=== PATIENT | male | born 1995 | race Caucasian/White ===

== ENCOUNTER 2017-07-21 09:53 | Emergency (ER) | payer SELFPAY ==
[~2017-07-21] VITALS: Ht 198.1 cm; Wt 82.0 kg
[2017-07-21 09:55] VITALS: BP 131/60; PULSE 85; RESP 14; TEMP 99; O2SAT 99
--- NOTE | 2017-07-21 11:28 | PD ---
HPI Chief Complaint: Cold / Flu Symptoms Time Seen by Provider: 11:20 Travel History International Travel<30 days: No Contact w/Intl Traveler<30days: No Traveled to known affect area: No History of Present Illness HPI 21-year-old male presents to the emergency room for evaluation of nonproductive cough, congestion, sore throat, and ear pressure for the past 2 days. He has not taken anything for symptoms. Denies fever, chills, nausea, and vomiting. Patient states usually gets better by now and is concerned this was turning into a bronchitis. He smokes but denies history of asthma. No chronic medical conditions or daily medications. Allergies-Medications (Allergen,Severity, Reaction): Coded Allergies: No Known Allergies (Verified Allergy, Unknown, 07/21/17) Reported Meds & Prescriptions Reported Meds & Active Scripts Active No Active Prescriptions or Reported Medications Review of Systems Except as stated in HPI: all other systems reviewed are Neg Physical Exam Narrative GENERAL: Well-nourished, well-developed male in no acute distress. Afebrile. Ambulatory. SKIN: Focused skin assessment warm/dry. HEAD: Normocephalic. EYES: No scleral icterus. No injection or drainage. EARS: Bilateral pinnae and external canals appear within normal limits. Bilateral ears occluded with cerumen. ENT: Mucosa pink and moist. Mild erythema of pharynx without edema or exudates. No uvular edema. No uvular, palatal, or tonsillar deviation. Airway patent. Nasal turbinates appear normal without nasal blood, purulent drainage or septal hematoma. NECK: Supple, trachea midline. No JVD or lymphadenopathy. CARDIOVASCULAR: Regular rate and rhythm without murmurs, gallops, or rubs. RESPIRATORY: Breath sounds equal bilaterally. No accessory muscle use. No crackles, rales, wheezes, or rhonchi. Data Data Last Documented VS Vital Signs Date Time Temp Pulse Resp B/P (MAP) Pulse Ox O2 Delivery O2 Flow Rate FiO2 07/21/17 09:55 99.0 85 14 131/60 (83) 99 MDM Medical Screen Exam Complete: Yes Emergency Medical Condition: No Differential Diagnosis URI Narrative Course 21-year-old male presents to the emergency room for evaluation of nonproductive cough, sore throat, congestion for the past 2 days. Patient is afebrile and well-appearing in the emergency room. Vital signs stable. Resting comfortably. Physical exam is reassuring. Erythematous pharynx. Lungs sounds clear and equal bilaterally. This is URI. Patient was informed that he may develop viral bronchitis if symptoms persist for greater than 10 days at which time he should follow-up with his PCP. No indication for antibiotics, steroids , or inhaler at this time. No urgent or emergent medical conditions at this time. A medical screening exam was performed: At the time of evaluation the presenting medical condition was determined not to be of an emergent nature. The patient was given the option of receiving additional care, but declined. Patient was given options for additional community resources from which to obtain care. The Patient Has Been advised to seek medical attention for their presenting complaint. The patient has been advised to return to the ER at any time if an emergent condition develops. Primary Impression: Encounter for medical screening examination Scripts No Active Prescriptions or Reported Meds Disposition: 01 DISCHARGE HOME Condition: Stable Lucy Lange Jul 21, 2017 11:28
== END 2017-07-21 11:36 | disposition left against medical advice (07) ==
LOC: NEPK 09:53
DX: R05 Cough (principal)
CPT/HCPCS: 99281

== ENCOUNTER 2017-08-02 18:17 | Emergency (ER) | payer SELFPAY ==
[~2017-08-02] VITALS: Ht 198.1 cm; Wt 81.8 kg
[2017-08-02 18:19] VITALS: BP 147/70; PULSE 114; RESP 14; TEMP 99.3; O2SAT 97
[2017-08-02 19:24] VITALS: BP 122/57; PULSE 93; RESP 16; TEMP 100.1; O2SAT 98
--- NOTE | 2017-08-02 20:59 | PD ---
HPI Chief Complaint: Psychiatric Symptoms Time Seen by Provider: 20:49 Travel History International Travel<30 days: No Contact w/Intl Traveler<30days: No Traveled to known affect area: No History of Present Illness HPI 21-year-old white male presents to emergency department at the recommendation of his psychologist for evaluation of hallucinations. The patient states that he's been seen by a counselor now for the past several weeks. He's been evaluated for depression. He states that he has had depression for as long as he can recall. He also is hearing voices. Sometimes they are whispers and he cannot hear with her saying other times her voices of persecution as well as telling him to hurt himself. He performs self relating cutting today. He had caused an abrasion to his left wrist. He denies any suicidal or homicidal ideation. He denies any toxic ingestions. He states that he had quit alcohol one month ago. He denies any drugs. He does smoke tobacco. Patient is unaware that he has a low-grade temperature. He states that he has had a cold last week that did improve. He has had some mild sore throat and slight cough still. Patient denies any known fever today. No earache, shortness of breath, nausea, vomiting, diarrhea, abdominal pain or urinary symptoms. PFSH Past Medical History Narrative Medical Depression Depression: Yes Diminished Hearing: No Respiratory: Yes (BRONCHITIS) Tetanus Vaccination: Unknown Influenza Vaccination: No Past Surgical History Surgical History: No Previous Surgery Social History Alcohol Use: No (1 MONTH AGO) Tobacco Use: Yes (1 /2 PPD) Substance Use: No (PAST POLYSUBSTANCE) Allergies-Medications (Allergen,Severity, Reaction): Coded Allergies: No Known Allergies (Verified Allergy, Unknown, 08/02/17) Reported Meds & Prescriptions Reported Meds & Active Scripts Active No Active Prescriptions or Reported Medications Review of Systems Except as stated in HPI: all other systems reviewed are Neg Psychiatric: Positive: Depression, Disorder of Thought, Mood Disorder, No: Anxiety, Suicidal Ideations, Substance Abuse, Homicidal Ideation Physical Exam Narrative GENERAL: Well-nourished, well-developed patient. SKIN: Warm and dry. Patient has a superficial cut to the left volar wrist HEAD: Normocephalic and atraumatic. EYES: No scleral icterus. No injection or drainage. ENT: No nasal drainage noted. Mucous membranes pink. Airway patent. NECK: Supple, trachea midline. Moves head freely without obvious discomfort. CARDIOVASCULAR: Regular rate and rhythm without murmurs, gallops, or rubs. RESPIRATORY: Breath sounds equal bilaterally. No accessory muscle use. GASTROINTESTINAL: Abdomen soft, non-tender, nondistended. EXTREMITIES: No cyanosis or edema. BACK: Nontender without obvious deformity. No CVA tenderness. NEURO: Patient is alert and oriented. no sensorimotor deficits. Nonfocal. Normal speech. PSYCH: No delusions. No auditory or visual hallucinations. Data Data Last Documented VS Vital Signs Date Time Temp Pulse Resp B/P (MAP) Pulse Ox O2 Delivery O2 Flow Rate FiO2 08/02/17 22:50 98.1 67 18 118/64 (82) 99 Room Air Orders Orders Complete Blood Count With Diff (08/02/17 18:32) Comprehensive Metabolic Panel (08/02/17 18:32) Psych Screen (08/02/17 18:32) Drug Screen, Random Urine (08/02/17 18:32) Alcohol (Ethanol) (08/02/17 18:32) Group A Rapid Strep Screen (08/02/17 20:49) Influenzae A/B Antigen (08/02/17 20:49) Chest, Single Ap (08/02/17 20:49) Salicylates (Aspirin) (08/02/17 20:49) Tylenol (Acetaminophen) (08/02/17 20:49) Acetaminophen (Tylenol) (08/02/17 21:00) Tetanus/Diphtheria Tox Adult (Tetanus/Di (08/02/17 21:00) Strep Culture (Group A) (08/02/17 21:34) Olanzapine (Zyprexa) (08/02/17 23:00) Labs Laboratory Tests Test 08/02/17 21:16 White Blood Count 10.2 TH/MM3 Red Blood Count 5.20 MIL/MM3 Hemoglobin 15.2 GM/DL Hematocrit 42.8 % Mean Corpuscular Volume 82.4 FL Mean Corpuscular Hemoglobin 29.3 PG Mean Corpuscular Hemoglobin Concent 35.6 % Red Cell Distribution Width 12.7 % Platelet Count 263 TH/MM3 Mean Platelet Volume 8.6 FL Neutrophils (%) (Auto) 68.0 % Lymphocytes (%) (Auto) 24.4 % Monocytes (%) (Auto) 5.4 % Eosinophils (%) (Auto) 1.6 % Basophils (%) (Auto) 0.6 % Neutrophils # (Auto) 6.9 TH/MM3 Lymphocytes # (Auto) 2.5 TH/MM3 Monocytes # (Auto) 0.6 TH/MM3 Eosinophils # (Auto) 0.2 TH/MM3 Basophils # (Auto) 0.1 TH/MM3 CBC Comment DIFF FINAL Differential Comment Blood Urea Nitrogen 9 MG/DL Creatinine 0.78 MG/DL Random Glucose 71 MG/DL Total Protein 7.7 GM/DL Albumin 4.4 GM/DL Calcium Level 8.9 MG/DL Alkaline Phosphatase 76 U/L Aspartate Amino Transf (AST/SGOT) 16 U/L Alanine Aminotransferase (ALT/SGPT) 23 U/L Total Bilirubin 0.6 MG/DL Sodium Level 138 MEQ/L Potassium Level 3.5 MEQ/L Chloride Level 106 MEQ/L Carbon Dioxide Level 24.7 MEQ/L Anion Gap 7 MEQ/L Estimat Glomerular Filtration Rate 124 ML/MIN Salicylates Level 2.7 MG/DL Urine Opiates Screen NEG Acetaminophen Level LESS THAN 2.0 MCG/ML Urine Barbiturates Screen NEG Urine Amphetamines Screen NEG Urine Benzodiazepines Screen NEG Urine Cocaine Screen NEG Urine Cannabinoids Screen NEG Ethyl Alcohol Level LESS THAN 3 MG/DL MDM Medical Decision Making Medical Screen Exam Complete: Yes Emergency Medical Condition: Yes Medical Record Reviewed: Yes Interpretation(s) Laboratory Tests Test 08/02/17 21:16 White Blood Count 10.2 TH/MM3 Red Blood Count 5.20 MIL/MM3 Hemoglobin 15.2 GM/DL Hematocrit 42.8 % Mean Corpuscular Volume 82.4 FL Mean Corpuscular Hemoglobin 29.3 PG Mean Corpuscular Hemoglobin Concent 35.6 % Red Cell Distribution Width 12.7 % Platelet Count 263 TH/MM3 Mean Platelet Volume 8.6 FL Neutrophils (%) (Auto) 68.0 % Lymphocytes (%) (Auto) 24.4 % Monocytes (%) (Auto) 5.4 % Eosinophils (%) (Auto) 1.6 % Basophils (%) (Auto) 0.6 % Neutrophils # (Auto) 6.9 TH/MM3 Lymphocytes # (Auto) 2.5 TH/MM3 Monocytes # (Auto) 0.6 TH/MM3 Eosinophils # (Auto) 0.2 TH/MM3 Basophils # (Auto) 0.1 TH/MM3 CBC Comment DIFF FINAL Differential Comment Blood Urea Nitrogen 9 MG/DL Creatinine 0.78 MG/DL Random Glucose 71 MG/DL Total Protein 7.7 GM/DL Albumin 4.4 GM/DL Calcium Level 8.9 MG/DL Alkaline Phosphatase 76 U/L Aspartate Amino Transf (AST/SGOT) 16 U/L Alanine Aminotransferase (ALT/SGPT) 23 U/L Total Bilirubin 0.6 MG/DL Sodium Level 138 MEQ/L Potassium Level 3.5 MEQ/L Chloride Level 106 MEQ/L Carbon Dioxide Level 24.7 MEQ/L Anion Gap 7 MEQ/L Estimat Glomerular Filtration Rate 124 ML/MIN Salicylates Level 2.7 MG/DL Urine Opiates Screen NEG Acetaminophen Level LESS THAN 2.0 MCG/ML Urine Barbiturates Screen NEG Urine Amphetamines Screen NEG Urine Benzodiazepines Screen NEG Urine Cocaine Screen NEG Urine Cannabinoids Screen NEG Ethyl Alcohol Level LESS THAN 3 MG/DL Last 24 hours Impressions Chest X-Ray 08/02/[id number] Signed Impressions: Service Date/Time: Wednesday, August 02, 2017 20:57 - CONCLUSION: The lungs are clear. Bentley Choi MD Differential Diagnosis MDM: High Differential diagnoses: Schizophrenia, schizoaffective disorder, bipolar, anxiety, depression, adjustment reaction, mood disorder NOS, ODD, depressive disorder NOS, dementia, dementia with agitation, psychosis NOS, substance induced mood disorder, DMDD, Asperger syndrome, infection,electrolyte abnormality, malingering. Narrative Course Mental health screening discussed with the patient. Psychiatric screen ordered. The patient has been medically cleared. Patient's given tetanus immunization. Patient's chest x-ray, flu, rapid strep and laboratory tests are negative. This is medical clearance for psychiatric admission, URI Diagnosis Primary Impression: Medical clearance for psychiatric admission Additional Impression: URI Scripts No Active Prescriptions or Reported Meds Condition: Stable Deven Rich Aug 02, 2017 20:59
[2017-08-02] MEDS ORDERED: TETANUS/DIPHTHERIA TOXOID ADULT 0.5 ML VIAL IM ONE (21:00)
[2017-08-02] MEDS ORDERED: ACETAMINOPHEN 500 MG CPLT PO ONE (21:00)
[2017-08-02 22:02] LABS: AUTOMATED NEUTROPHIL # 6.9 TH/MM3 (1.8-7.7); BASOPHIL # 0.1 TH/MM3 (0-0.2); BASOPHIL % 0.6 % (0.0-2.0); EOSINOPHIL # 0.2 TH/MM3 (0-0.4); EOSINOPHIL % 1.6 % (0.0-4.0); HEMATOCRIT 42.8 % (39.0-51.0); HEMOGLOBIN 15.2 GM/DL (13.0-17.0); LYMPH % 24.4 % (9.0-44.0); LYMPHOCYTE # 2.5 TH/MM3 (1.0-4.8); MEAN CELL VOLUME 82.4 FL (80.0-100.0); MEAN CORPUSCULAR HEMOGLOBIN 29.3 PG (27.0-34.0); MEAN CORPUSCULAR HGB CONC 35.6 % (32.0-36.0); MEAN PLATELET VOLUME 8.6 FL (7.0-11.0); MONO % 5.4 % (0.0-8.0); MONOCYTE # 0.6 TH/MM3 (0-0.9); PLATELET COUNT 263 TH/MM3 (150-450); RED CELL DISTRIBUTION WIDTH 12.7 % (11.6-17.2); WHITE BLOOD COUNT 10.2 TH/MM3 (4.0-11.0)
--- NOTE | 2017-08-02 22:08 | RADRPT ---
EXAM DATE/TIME: 08/02/2017 20:57 [facility] COMPARISON: No previous studies available for comparison. INDICATIONS : Cough. MEDICAL HISTORY : Smoking. SURGICAL HISTORY : None. ENCOUNTER: Initial ACUITY: 1 day PAIN SCORE: 0/10 LOCATION: Bilateral chest FINDINGS: A single view of the chest demonstrates the lungs to be symmetrically aerated without evidence of mas s, infiltrate or effusion. The cardiomediastinal contours are unremarkable. Osseous structures are intact. CONCLUSION: The lungs are clear. Bentley Choi MD on August 02, 2017 at 22:06 Board Certified Radiologist. This report was verified electronically.
[2017-08-02 22:16] LABS: ALBUMIN 4.4 GM/DL (3.4-5.0); ALT (GPT) 23 U/L (12-78); AST (GOT) 16 U/L (15-37); BICARBONATE 24.7 MEQ/L (21.0-32.0); BLOOD UREA NITROGEN 9 MG/DL (7-18); CALCIUM 8.9 MG/DL (8.5-10.1); CHLORIDE 106 MEQ/L (98-107); CREATININE 0.78 MG/DL (0.60-1.30); GLOMERULAR FILTRATION RATE 124 ML/MIN (>89); GLUCOSE,RANDOM 71 MG/DL (74-106); SODIUM (NA) 138 MEQ/L (136-145)
[2017-08-02 22:19] LABS: ALKALINE PHOSPHATASE 76 U/L (45-117); TOTAL BILIRUBIN ADULT 0.6 MG/DL (0.2-1.0); TOTAL PROTEIN 7.7 GM/DL (6.4-8.2)
[2017-08-02 22:50] VITALS: BP 118/64; PULSE 67; RESP 18; TEMP 98.1; O2SAT 99
[2017-08-02] MEDS ORDERED: OLANZapine 5 MG TAB PO ONE (23:00)
[2017-08-03 06:20] VITALS: BP 95/65; PULSE 61; RESP 18; O2SAT 96
[2017-08-03] MEDS ORDERED: PROZ20CA11 PO (11:34)
--- NOTE | 2017-08-03 11:41 | PD ---
History of Present Illness Chief Complaint: Psychiatric Symptoms Time Seen by Provider: 11:30 Travel History International Travel<30 Days: No Contact w/Intl Traveler<30days: No Known affected area: No Legal Status Legal Status: Voluntary History of Present Illness: 21-year-old male presents voluntarily with complaints of depression and auditory hallucinations of greater than 6 years duration. He states he would like to try an antidepressant medicine. The depression and auditory hallucinations are not severe enough that he wants to kill himself or be hospitalized. He does have a small abrasion from "attempting" to cut himself. However, he denies suicidal or homicidal ideation, plan or intent. He denies any psychotic symptoms at this time. He is verbally nino for safety and he is competent to do so. 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 He also lives with his parents. PFSH Past Medical History Depression: Yes Diminished Hearing: No Respiratory: Yes (BRONCHITIS) Tetanus Vaccination: Unknown Influenza Vaccination: No Past Surgical History Surgical History: No Previous Surgery Psychiatric History Psychiatric History Hx Psychiatric Treatment: AT AGE 15 WAS ADMITTED TO A HOSPITAL IN [place] FOR AN OVERDOSE ON HEROIN. AT AGE 11 WAS CROWLEY ACTED IN [facility]. CURRENTLY SEES A THERAPIST, DR CHAVES, AT [facility] WHO THINKS HE MAY HAVE SCHIZOPHRENIA. This physician does not see significant objective clinical evidence that warrants a diagnosis of schizophrenia at this time. History of Inpatient Treatment: Yes Guns or firearms in home: No Social History Hx Alcohol Use: No (1 MONTH AGO) Hx Tobacco Use: Yes (1 /2 PPD) Hx Substance Use: No (PAST POLYSUBSTANCE) Substance Use Type: Marijuana, Amphetamines-Stimulants, Heroin, Cocaine Hx of Substance Use Treatment: No Allergies-Medications (Allergen,Severity, Reaction): Coded Allergies: No Known Allergies (Verified Allergy, Unknown, 08/02/17) Reported Meds & Prescriptions Reported Meds & Active Scripts Active Prozac (Fluoxetine HCl) 20 Mg Cap 20 Mg PO DAILY Review of Systems Psychiatric: COMPLAINS OF: Anxiety, Depression Except as stated in HPI: all other systems reviewed are Neg Mental Status Examination Appearance: Appropriate Consciousness: Alert Orientation: x4 Motor Activity: Normal gait Speech: Unremarkable Language: Adequate Fund of Knowledge: Adequate Attention and Concentration: Adequate Memory: Unremarkable Mood: Sad, Anxious Affect: Appropriate Thought Process & Associations: Intact Thought Content: Appropriate Hallucination Type: None Delusion Type: None Suicidal Ideation: No Suicidal Plan: No Suicidal Intention: No Homicidal Ideation: No Homicidal Plan: No Homicidal Intention: No Insight: Adequate Judgment: Adequate MDM Medical Decision Making Medical Record Reviewed: Yes Assessment/Plan Patient interviewed at bedside. Case discussed with nurse Alli. Patient provided informed consent for a prescription of Prozac. Patient does not meet criteria for Crowley act or involuntary psychiatric hospitalization at this time. 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 Least restrictive alternative applies at this point and the patient can be followed on an outpatient basis. Orders Orders Complete Blood Count With Diff (08/02/17 18:32) Comprehensive Metabolic Panel (08/02/17 18:32) Psych Screen (08/02/17 18:32) Drug Screen, Random Urine (08/02/17 18:32) Alcohol (Ethanol) (08/02/17 18:32) Group A Rapid Strep Screen (08/02/17 20:49) Influenzae A/B Antigen (08/02/17 20:49) Chest, Single Ap (08/02/17 20:49) Salicylates (Aspirin) (08/02/17 20:49) Tylenol (Acetaminophen) (08/02/17 20:49) Acetaminophen (Tylenol) (08/02/17 21:00) Tetanus/Diphtheria Tox Adult (Tetanus/Di (08/02/17 21:00) Strep Culture (Group A) (08/02/17 21:34) Olanzapine (Zyprexa) (08/02/17 23:00) Diet Regular Basic (08/03/17 Breakfast) Diet Regular Basic (08/03/17 Lunch) Results Vital Signs Date Time Temp Pulse Resp B/P (MAP) Pulse Ox O2 Delivery O2 Flow Rate FiO2 08/03/17 06:20 61 18 95/65 (75) 96 Room Air 08/02/17 22:50 98.1 67 18 118/64 (82) 99 Room Air 08/02/17 19:24 100.1 93 16 122/57 (78) 98 Room Air 08/02/17 18:19 99.3 114 14 147/70 (95) 97 Laboratory Tests Test 08/02/17 21:16 White Blood Count 10.2 Red Blood Count 5.20 Hemoglobin 15.2 Hematocrit 42.8 Mean Corpuscular Volume 82.4 Mean Corpuscular Hemoglobin 29.3 Mean Corpuscular Hemoglobin Concent 35.6 Red Cell Distribution Width 12.7 Platelet Count 263 Mean Platelet Volume 8.6 Neutrophils (%) (Auto) 68.0 Lymphocytes (%) (Auto) 24.4 Monocytes (%) (Auto) 5.4 Eosinophils (%) (Auto) 1.6 Basophils (%) (Auto) 0.6 Neutrophils # (Auto) 6.9 Lymphocytes # (Auto) 2.5 Monocytes # (Auto) 0.6 Eosinophils # (Auto) 0.2 Basophils # (Auto) 0.1 CBC Comment DIFF FINAL Differential Comment Blood Urea Nitrogen 9 Creatinine 0.78 Random Glucose 71 Total Protein 7.7 Albumin 4.4 Calcium Level 8.9 Alkaline Phosphatase 76 Aspartate Amino Transf (AST/SGOT) 16 Alanine Aminotransferase (ALT/SGPT) 23 Total Bilirubin 0.6 Sodium Level 138 Potassium Level 3.5 Chloride Level 106 Carbon Dioxide Level 24.7 Anion Gap 7 Estimat Glomerular Filtration Rate 124 Salicylates Level 2.7 Urine Opiates Screen NEG Acetaminophen Level LESS THAN 2.0 Urine Barbiturates Screen NEG Urine Amphetamines Screen NEG Urine Benzodiazepines Screen NEG Urine Cocaine Screen NEG Urine Cannabinoids Screen NEG Ethyl Alcohol Level LESS THAN 3 Date/Time Source Procedure Growth Status 08/02/17 21:34 Throat Group A Streptococcus Screen Pending Received Diagnosis Primary Impression: Adjustment disorder with depressed mood Prescriptions Fluoxetine (Prozac) 20 Mg Cap 20 MG PO DAILY, #30 CAP 0 Refills Prov: Elmo Mcdaniel MD 08/03/17 Condition: Stable Elmo Mcdaniel MD Aug 03, 2017 11:41
--- NOTE | 2017-08-03 11:44 | PD ---
Physical Exam Time Seen by Provider: 11:[address] Mcdaniel has evaluated the patient and cleared the patient for discharge. The patient's parents are coming to pick him up. Data Data Last Documented VS Vital Signs Date Time Temp Pulse Resp B/P (MAP) Pulse Ox O2 Delivery O2 Flow Rate FiO2 08/03/17 06:20 61 18 95/65 (75) 96 Room Air 08/02/17 22:50 98.1 Orders Orders Complete Blood Count With Diff (08/02/17 18:32) Comprehensive Metabolic Panel (08/02/17 18:32) Psych Screen (08/02/17 18:32) Drug Screen, Random Urine (08/02/17 18:32) Alcohol (Ethanol) (08/02/17 18:32) Group A Rapid Strep Screen (08/02/17 20:49) Influenzae A/B Antigen (08/02/17 20:49) Chest, Single Ap (08/02/17 20:49) Salicylates (Aspirin) (08/02/17 20:49) Tylenol (Acetaminophen) (08/02/17 20:49) Acetaminophen (Tylenol) (08/02/17 21:00) Tetanus/Diphtheria Tox Adult (Tetanus/Di (08/02/17 21:00) Strep Culture (Group A) (08/02/17 21:34) Olanzapine (Zyprexa) (08/02/17 23:00) Diet Regular Basic (08/03/17 Breakfast) Diet Regular Basic (08/03/17 Lunch) Labs Laboratory Tests Test 08/02/17 21:16 White Blood Count 10.2 TH/MM3 Red Blood Count 5.20 MIL/MM3 Hemoglobin 15.2 GM/DL Hematocrit 42.8 % Mean Corpuscular Volume 82.4 FL Mean Corpuscular Hemoglobin 29.3 PG Mean Corpuscular Hemoglobin Concent 35.6 % Red Cell Distribution Width 12.7 % Platelet Count 263 TH/MM3 Mean Platelet Volume 8.6 FL Neutrophils (%) (Auto) 68.0 % Lymphocytes (%) (Auto) 24.4 % Monocytes (%) (Auto) 5.4 % Eosinophils (%) (Auto) 1.6 % Basophils (%) (Auto) 0.6 % Neutrophils # (Auto) 6.9 TH/MM3 Lymphocytes # (Auto) 2.5 TH/MM3 Monocytes # (Auto) 0.6 TH/MM3 Eosinophils # (Auto) 0.2 TH/MM3 Basophils # (Auto) 0.1 TH/MM3 CBC Comment DIFF FINAL Differential Comment Blood Urea Nitrogen 9 MG/DL Creatinine 0.78 MG/DL Random Glucose 71 MG/DL Total Protein 7.7 GM/DL Albumin 4.4 GM/DL Calcium Level 8.9 MG/DL Alkaline Phosphatase 76 U/L Aspartate Amino Transf (AST/SGOT) 16 U/L Alanine Aminotransferase (ALT/SGPT) 23 U/L Total Bilirubin 0.6 MG/DL Sodium Level 138 MEQ/L Potassium Level 3.5 MEQ/L Chloride Level 106 MEQ/L Carbon Dioxide Level 24.7 MEQ/L Anion Gap 7 MEQ/L Estimat Glomerular Filtration Rate 124 ML/MIN Salicylates Level 2.7 MG/DL Urine Opiates Screen NEG Acetaminophen Level LESS THAN 2.0 MCG/ML Urine Barbiturates Screen NEG Urine Amphetamines Screen NEG Urine Benzodiazepines Screen NEG Urine Cocaine Screen NEG Urine Cannabinoids Screen NEG Ethyl Alcohol Level LESS THAN 3 MG/DL MDM Supervised Visit with MARY: No Narrative Course Dr. Mcdaniel has evaluated the patient and cleared the patient for discharge. The patient's parents are coming to pick him up. Patient contracts safety. Denies suicidal or homicidal ideations. Patient will be provided community resource packet to /SHRADDHA for follow-up. Has friends and family for support. Patient was medically cleared by alternate provider prior to psych screening. Patient has been evaluated by psychiatry and and is now cleared for discharge. Diagnosis Primary Impression: Adjustment disorder with depressed mood Referrals: [facility] (Out patient) [facility] Primary Care Physician Psychiatrist Mikayla LLANES Behavioral Patient Instructions: Depression (ED), Disruptive Mood Dysregulation Disorder ( ED), General Instructions, Mood Disorders (ED) Additional Instruction: Contract safety to your self and others Follow-up with psychiatry Follow-up with primary care provider Follow-up with Mj Rodriguez Return to the emergency department immediately with worsening of symptoms Med/Other Pt SpecificInfo: Prescription(s) given Scripts Fluoxetine (Prozac) 20 Mg Cap 20 MG PO DAILY, #30 CAP 0 Refills Prov: Elmo Mcdaniel MD 08/03/17 Disposition: 01 DISCHARGE HOME Condition: Stable Lizette Gama [facility] Aug 03, 2017 11:44
== END 2017-08-03 12:56 | disposition home or self-care (01) ==
LOC: NEPJ 18:17
DX: F43.21 Adjustment disorder with depressed mood (principal); J06.9 Acute upper respiratory infection, unspecified; F17.200 Nicotine dependence, unspecified, uncomplicated
CPT/HCPCS: 71010; 80053; 80307; 85025; 87081; 87804; 87880; 99284